=== PATIENT | male | born 1945 | race Caucasian/White ===

== ENCOUNTER 2016-07-09 11:52 | Day surgery (SDC) | payer MEDICARE, BC ==
[2016-07-08 12:35] LABS: HEMATOCRIT 35.6 % (40.0-51.0); HEMOGLOBIN 12.3 g/dL (13.6-17.8)
[2016-07-08 12:49] LABS: BUN (BLOOD UREA NITROGEN) 14 MG/DL (6-23); CALCIUM, SERUM 9.5 MG/DL (8.5-10.4); CHLORIDE, SERUM 105 MMOL/L (96-112); CO2 (CARBON DIOXIDE) 26 MMOL/L (24-34); CREATININE 1.53 MG/DL (0.70-1.30); GFR AFRICAN AMERICAN 52 ML/MIN (>=60); GFR NON AFRICAN AMERICAN 45 ML/MIN (>=60); GLUCOSE, SERUM 110 MG/DL (60-99); POTASSIUM, SERUM 5.2 MMOL/L (3.5-5.3); SODIUM, SERUM 141 MMOL/L (135-148)
[2016-07-08 12:52] LABS: ASCORBIC ACID (UR NOT ORDER) NEG (NEG); BILIRUBIN, URINE NEGATIVE (NEG); KETONE, URINE NEGATIVE (NEG); LEUKOCYTE ESTERASE(NOT OR TRACE (NEG); WBC (NOT ORDERED) (RFLEX) 2 (0-5)
--- NOTE | ~2016-07-09 | OP ---
Record Of Operation [facility] [address] [place]. [address] NAME: BRANDY ALDRICH : 43 STATUS : [facility]#: [id number] AGE: 70 ADM/REG DATE : 07/09/16 MR#: [id number] REPORT SERV DATE: 07/09/16 DICTATED BY: TIMOTEO PEREZ III DATE: 07/09/16 REPORT STATUS : Draft TRANSCRIBED BY: MODL DATE: 07/09/16 DATE OF PROCEDURE: 07/09/2016 PREOPERATIVE DIAGNOSIS: Right renal calculi. POSTOPERATIVE DIAGNOSIS: Right renal calculi. PROCEDURE: Extracorporeal shock wave lithotripsy. SURGEON: Timoteo Perez M.D. ANESTHESIA: MAC. DRAINS: None. SPECIMENS: None. INDICATION: Mr. Aldrich is a 70-year-old white male with a history of nephrolithiasis. He provides consent for ESWL of right renal calculi. DESCRIPTION OF PROCEDURE: After consent was obtained, the patient was identified. He was taken to the lithotripsy suite and placed in the supine position. His stones were visualized and the unit was made ready. MAC anesthesia was administered. Lithotripsy commenced. He ultimately received 3000 shocks to a power level of 7, 1500 shocks were given to the stone in the midpole and 1500 shocks to the stone in the lower pole. Both appeared to fragment. The patient tolerated the procedure well and was taken to phase 2 recovery in stable condition. PH/MODL Timoteo Perez III, M.D. / [id number] CC: Timoteo Perez III, M.D.
[~2016-07-09 11:52] MED LIST: AMIT25 PO; CIALIS5 MG PO; FLEX PO; FLOMAX4 PO; GLUCOPHAGE1000 MG PO; MOBIC15 MG PO; PERCOCET1 TA4 PO; PRILOSEC40 MG PO; PROSCAR5 PO; RED YEAS1 PO; SUPPLEMENT; T PO; VITAMINS
== END 2016-07-09 15:59 | disposition home or self-care (01) ==
LOC: SDC 11:52
PROVIDERS: Urology
PROC: 0TF3XZZ Fragmentation in Right Kidney Pelvis, External Approach (ICD-10-PCS; principal; 2016-07-09 14:00)
DX: N20.0 Calculus of kidney (principal); N40.0 Benign prostatic hyperplasia without lower urinary tract symptoms; E11.9 Type 2 diabetes mellitus without complications; G89.29 Other chronic pain; M54.5 Low back pain; M19.90 Unspecified osteoarthritis, unspecified site; K21.9 Gastro-esophageal reflux disease without esophagitis; Z79.1 Long term (current) use of non-steroidal anti-inflammatories (NSAID); Z79.84 Long term (current) use of oral hypoglycemic drugs; Z79.899 Other long term (current) drug therapy; Z87.891 Personal history of nicotine dependence; Z87.828 Personal history of other (healed) physical injury and trauma; Z87.442 Personal history of urinary calculi; Z98.890 Other specified postprocedural states; Z90.89 Acquired absence of other organs
CPT/HCPCS: 50590; 74000; 80048; 81001; 82962; 85014; 85018; 93005